=== PATIENT | female | born 1955 | race Caucasian/White ===

== ENCOUNTER → 2016-05-29 | Outpatient (CLI) | payer OTHER ==
[~2016-05-29] MED LIST: ULTRAM50 MG PO
== END | disposition home or self-care (01) ==
LOC: RAD 13:00
DX: M51.36 Other intervertebral disc degeneration, lumbar region (principal)
CPT/HCPCS: 72100

== ENCOUNTER → 2016-06-18 | Outpatient (CLI) | payer OTHER | END | disposition home or self-care (01) | LOC: RAD 06-10 09:00 | DX: N95.0 Postmenopausal bleeding (principal); R10.9 Unspecified abdominal pain | CPT/HCPCS: 76856 ==